=== PATIENT | male | born 1955 | race American Indian/Alaskan Native ===

== ENCOUNTER 2020-09-20 11:19 | Emergency (ER) | payer OTHER ==
[2020-09-20 11:24] VITALS: BP 123/82
--- NOTE | 2020-09-20 11:54 | Emergency Department Report ---
Minor Respiratory - HPI Chief Complaint: Upper Respiratory Infection Stated Complaint: SICK/COLD SYM Time Seen by Provider: 09/20/20 11:44 Duration: 4 Days Severity: mild Minor Respiratory: Yes Rhinorrhea, Yes Able to Tolerate Fluids, Yes Cough, No Sore Throat, No Ear Pain, No Sick Contacts, No Hemoptysis, No Chest Pain, No Shortness of Breath, No Fever Other History: The patient was evaluated in the emergency department for symptoms described in the history of present illness. He/she was evaluated in the context of the global COVID-19 pandemic, which necessitated consideration that the patient might be at risk for infection with the virus that causes COVID-19. Institutional protocols and algorithms that pertain to the evaluation of patients at risk for COVID-19 are in a state of rapid change based on information released by regulatory bodies including the CDC and federal and state organizations. These policies and algorithms were followed during the pat ient's care in the emergency department. Please note that these policies, procedures and recommendations changed on a rapid basis. 64-year-old - [place] male presents to the emergency room stating he has a cold. Patient admits to a slight cough no fever no chills no nausea no vomiting no chest pain or abdominal pain. Patient state is drinking plenty of fluids and eating well. Patient states he has been taking V[employer] Brooke's cough drops and drinking lemon grass. Patient is a past medical history of [place] prediabetic and currently on no medications. He has no known drug allergies. ED Review of Systems ROS: Stated complaint: SICK/COLD SYM Other details as noted in HPI Comment: All other systems reviewed and negative ED Past Medical Hx - Past Medical History Previous Medical History?: Yes Hx Congestive Heart Failure: No Hx Diabetes: Yes (noncompliant) Hx Asthma: No - Surgical History Past Surgical History?: Yes Additional Surgical History: Abd hernia repair - Social History Smoking Status: Never Smoker - Medications Home Medications: Home Medications Medication Instructions Recorded Confirmed Last Taken Type metFORMIN [Glucophage] 500 mg PO BID 07/11/15 07/11/15 Unknown History Metoprolol [Lopressor TAB] 25 mg PO BID #60 tablet 07/12/15 Unknown Rx Pantoprazole [Protonix TAB] 20 mg PO BID #60 tablet 07/12/15 Unknown Rx Aspirin EC [Ecotrin] 325 mg PO QDAY #30 tablet 07/14/15 Unknown Rx Clopidogrel [Plavix] 75 mg PO QDAY #30 tablet 07/14/15 Unknown Rx Lisinopril [Zestril TAB] 2.5 mg PO QDAY #30 tab 07/14/15 Unknown Rx Metoprolol [Lopressor TAB] 25 mg PO BID #60 tablet 07/14/15 Unknown Rx Simvastatin (Nf) [Zocor TAB] 20 mg PO QHS #30 tablet 07/14/15 Unknown Rx Minor Respiratory Exam - Exam General: Vital signs noted. No distress. Alert and acting appropriately. HEENT: Yes Moist Mucous Membranes, No Pharyngeal Erythema, No Pharyngeal Exudates, No Rhinorrhea, No Conjuctival Injection, No Frontal Tenderness, No Maxillary Tenderness Ear: Neither EAC Pain, Neither EAC Discharge Neck: Yes Supple, No Adenopathy Lungs: Yes Good Air Exchange, No Wheezes, No Ronchi, No Stridor, No Cough, No Labored Respirations, No Retractions, No Use of Accessory Muscles, No Other Abnormal Lung Sounds Heart: Yes Regular, No Murmur Abdomen: Yes Normal Bowel Sounds, No Tenderness, No Peritoneal Signs Skin: No Rash, No Edema Neurologic: Alert and oriented, no deficits. Musculoskeletal: Unremarkable. ED Course Vital Signs 09/20/20 11:23 Temperature 98.4 F Pulse Rate 77 Respiratory 16 Rate Blood Pressure 123/82 [Right] O2 Sat by Pulse 100 Oximetry ED Medical Decision Making - Medical Decision Making 64-year-old -[place] male presents to the emergency room stating he has a cold. Patient admits to a slight cough no fever no chills no nausea no vomiting no chest pain or abdominal pain. Patient state is drinking plenty of fluids and eating well. Patient states he has been taking [employer]'s cough drops and drinking lemon grass. Patient is a past medical history of [place] prediabetic and currently on no medications. He has no known drug allergies. Patient is vital signs are stable satting at 100%. Patient has no underlying comorbidities. Patient instructed to quarantine and get Covid testing. Return back to the emergency room if any shortness of breath. Patient continue taking cough medication and [facility] Critical care attestation.: If time is entered above; I have spent that time in minutes in the direct care of this critically ill patient, excluding procedure time. ED Disposition Clinical Impression: Viral syndrome Disposition: [id number] TO HOME OR SELFCARE Is pt being admited?: No Does the pt Need Aspirin: No Condition: Stable Additional Instructions: Your symptoms appear most consistent with a nonspecific viral syndrome. However, given this current pandemic, COVID-19 is in the differential of possibilities. Despite your previous negative COVID-19 test, I do recommend repeat outpatient Covid 19 testing. In the meantime, isolate/quarantine yourself and stay away from anyone who is elderly, immunocompromised or chronically ill. You can use ibuprofen every 6-8 hours and Tylenol every 4-8 hours, using the dosing on the back of the bottle, as needed for any fever or body aches. Return to the emergency department with any worsening of your symptoms, development of chest pain or shortness of breath, or with any acute distress. Referrals: [facility] [Outside] - 3-5 Days Forms: Work/School Release Form(ED)
== END 2020-09-20 12:54 | disposition home or self-care (01) ==
LOC: ED 11:19
DX: B34.9 Viral infection, unspecified (principal); E11.9 Type 2 diabetes mellitus without complications; Z79.899 Other long term (current) drug therapy
CPT/HCPCS: 99281